=== PATIENT | female | born 1950 | race Caucasian/White ===

== ENCOUNTER → 2020-05-27 | Day surgery (SDC) | payer MEDICARE, OTHER ==
[~2020-05-27] VITALS: Ht 160 cm; Wt 112.0 kg
[~2020-05-27] MED LIST: AMIT75TA2 PO; AMLO5TAB15 PO; ATO40T PO; BUPIVACAINE 0.25% INJ 50ML VIAL ONE; CARB200T4 PO; CARV25TA55 PO; CHOL100055 PO; DOCU-94 PO; ESLI1TAB4 PO; HEPARIN SODIUM (PORCINE) 5000 UNITS/ML 1ML VIAL ONE; LIDOCAINE W/ EPINEPHRINE 1% 20ML VIAL ONE; LOSA-39 PO; MULT1TAB73 PO; ONDANSETRON HCL 4 MG/2 ML VIAL IV PRN; PREG100C PO; PROPOFOL 10 MG/ML 20 ML IV ONE; TOPI200T37 PO; ZINC30TA3 PO; ceFAZolin 1GM/50ML 100 ML IV ONE; ePHEDrine SULFATE 50 MG/ML AMP IV PRN; fentaNYL CITRATE 100 MCG/2 ML VL ONE; hydrALAZINE HCL 20 MG/ML VL IV PRN
[2020-05-27 09:35] VITALS: BP 133/60
== END | disposition home or self-care (01) ==
LOC: SUR 07:18
PROVIDERS: ATTEND Surgery
DX: L72.0 Epidermal cyst (principal); D64.9 Anemia, unspecified; I10 Essential (primary) hypertension; E66.9 Obesity, unspecified; L03.312 Cellulitis of back [any part except buttock and flank]; Z20.828 Contact with and (suspected) exposure to other viral communicable diseases; Z98.890 Other specified postprocedural states; Z68.41 Body mass index [BMI] 40.0-44.9, adult; Z90.710 Acquired absence of both cervix and uterus; Z91.048 Other nonmedicinal substance allergy status
CPT/HCPCS: 11402; 12031; 88305; J0690; J1644; J2704; J3010; J3490; U0003